=== PATIENT | female | born 1955 | race Caucasian/White ===

== ENCOUNTER → 2018-01-16 | Outpatient (CLI) | payer OTHER | END | disposition home or self-care (01) | LOC: LAB 12:15 | DX: R10.2 Pelvic and perineal pain (principal) | CPT/HCPCS: 87086 ==

== ENCOUNTER → 2018-05-14 | Outpatient (CLI) | payer OTHER | LOC: LAB SHORT 12:45 → LAB 12:45 | DX: J34.89 Other specified disorders of nose and nasal sinuses (principal) | CPT/HCPCS: 87070 ==

== ENCOUNTER 2019-02-24 13:02 | Day surgery (SDC) | payer OTHER ==
[~2019-02-24] VITALS: Ht 162.6 cm; Wt 54.3 kg
--- NOTE | 2019-02-24 15:09 | NUR ---
02/24/19 1509 Toi Vidal PT REFUSES ANY PO INTAKE IN STEPDOWN.
== END 2019-02-24 15:23 | disposition home or self-care (01) ==
LOC: ORSCSDS 13:02
PROVIDERS: Surgery
PROC: 0DJD8ZZ Inspection of Lower Intestinal Tract, Via Natural or Artificial Opening Endoscopic (ICD-10-PCS; principal; 2019-02-24 14:15)
DX: Z12.11 Encounter for screening for malignant neoplasm of colon (principal); Z86.010 Personal history of colon polyps; Z80.0 Family history of malignant neoplasm of digestive organs; Z87.891 Personal history of nicotine dependence
CPT/HCPCS: J2704; J7120

== ENCOUNTER 2024-05-01 12:21 | Day surgery (SDC) | payer MEDICARE ==
[~2024-05-01] VITALS: Ht 162.6 cm; Wt 53.3 kg
[~2024-05-01 12:21] MED LIST: Lactated Ringer's 1,000 ML IV ONE; propofoL 50 ML IV ONE
[2024-05-01] MEDS ORDERED: ERGO50000 (12:34)
[2024-05-01] MEDS ORDERED: B COMPLEX FORM0.4 MG (12:34)
[2024-05-01] MEDS ORDERED: CALCIUM CARBON500 M1 (12:34)
[2024-05-01] MEDS ORDERED: CENTRUM SILVER1 EAC2 (12:34)
[2024-05-01] MEDS ORDERED: FISH OIL 1,2001 EAC4 (12:34)
[2024-05-01] MEDS ORDERED: Lactated Ringer's 1,000 ML IV ONE (13:04)
[2024-05-01 14:13] VITALS: BP 106/56
== END 2024-05-01 14:27 | disposition home or self-care (01) ==
LOC: ORSCSDS 12:21
PROVIDERS: Surgery
PROC: 0DJD8ZZ Inspection of Lower Intestinal Tract, Via Natural or Artificial Opening Endoscopic (ICD-10-PCS; principal; 2024-05-01 13:30)
DX: Z12.11 Encounter for screening for malignant neoplasm of colon (principal); Z80.0 Family history of malignant neoplasm of digestive organs; Z86.010 Personal history of colon polyps; Z79.899 Other long term (current) drug therapy
CPT/HCPCS: J2704; J7120

== ENCOUNTER 2025-08-22 01:42 | Emergency (ER) | payer OTHER, MEDICARE ==
[~2025-08-22] VITALS: Ht 162.6 cm; Wt 53.5 kg
[~2025-08-22 01:42] MED LIST changes: +B COMPLEX FORM0.4 MG; +CALCIUM CARBON500 M1; +CENTRUM SILVER1 EAC2; +ERGO50000; +FISH OIL 1,2001 EAC4; -Lactated Ringer's 1,000 ML IV ONE; -propofoL 50 ML IV ONE
[2025-08-22 03:00] VITALS: BP 120/79
[2025-08-22] MEDS ORDERED: RX Prepack 6 Tabs Oxycodone 5mg UD ONE (03:00)
== END 2025-08-22 03:07 | disposition home or self-care (01) ==
LOC: ER 01:42
DX: S52.502A Unspecified fracture of the lower end of left radius, initial encounter for closed fracture (principal); W01.0XXA Fall on same level from slipping, tripping and stumbling without subsequent striking against object, initial encounter; Z87.891 Personal history of nicotine dependence; Z79.899 Other long term (current) drug therapy; Z91.048 Other nonmedicinal substance allergy status
CPT/HCPCS: 25605; 73110; 99283-25; A9270

== ENCOUNTER → 2025-09-17 | Outpatient (CLI) | payer MEDICARE | LOC: LAB SHORT 15:20 → LAB 15:20 | DX: N39.0 Urinary tract infection, site not specified (principal) | CPT/HCPCS: 87086 ==

== ENCOUNTER → 2025-09-25 | Outpatient (CLI) | payer MEDICARE | LOC: LAB SHORT 15:58 → LAB 15:58 → LAB SHORT 09-28 15:58 | DX: R39.9 Unspecified symptoms and signs involving the genitourinary system (principal); R39.0 Extravasation of urine | CPT/HCPCS: 87086 ==